=== PATIENT | female | born 1950 | race Caucasian/White ===

== ENCOUNTER 2021-02-14 06:56 | Emergency (ER) | payer MEDICARE ==
[~2021-02-14 06:56] MED LIST: ASPIRIN EC81 MG PO; COZAAR 25MG TAB25 MG PO; CRESTOR40 MG PO; GLIPIZIDE ER2.5 MG PO; ISOSORBIDE DINI30 MG PO; K-DUR20 MEQ PO; LASIX40 MG PO; METFORMIN HCL500 MG PO; METOPROLOL SUCC50 MG PO; NORVASC5 MG PO; PLAVIX75 MG PO; PROTONIX 40MG T40 MG PO; PROZAC10 MG PO
[2021-02-14 07:54] LABS: BASOPHIL 0.3 % (0-2); EOSINOPHIL 5.2 % (0-7); HCT 34.5 % (37.0-47.0); HGB 10.6 g/dl (12.5-16.0); LYMPHOCYTE 29.4 % (15-48); MCH 25.8 pg (25.0-31.0); MCHC 30.7 g/dL (32.0-36.0); MCV 83.9 fL (78.0-100.0); MONOCYTE 6.8 % (0-12); MPV 9.5 fL (6.0-9.5); NRBC 0; PLT 144 K/uL (150-400); RBC 4.11 M/uL (4.20-5.40); RDW 15.1 % (11.5-14.0)
[2021-02-14 08:01] LABS: PROTHROMBIN TIME 12.5 SECONDS (11.4-13.6); PTT 32.6 SECONDS (22.2-34.7)
[2021-02-14 08:08] LABS: ALBUMIN 3.7 g/dL (3.4-5.0); BILIRUBIN - TOTAL 0.8 mg/dL (0.2-1.0); BUN/CREAT RATIO (CALC) 17.7 RATIO; CREATININE 2.09 mg/dL (0.51-0.95); GLOBULIN (CALCULATION) 2.9 g/dL; POTASSIUM 3.6 mmol/L (3.5-5.1); TOTAL PROTEIN 6.6 g/dL (6.4-8.2)
[2021-02-14 08:19] LABS: CKMB 4.9 ng/mL (0.0-3.6)
== END 2021-02-14 09:45 | disposition other institution (70) ==
LOC: FER 06:56
PROVIDERS: Emergency Medicine
DX: I20.0 Unstable angina (principal); I10 Essential (primary) hypertension; R91.8 Other nonspecific abnormal finding of lung field; J98.11 Atelectasis; E11.9 Type 2 diabetes mellitus without complications; Z95.5 Presence of coronary angioplasty implant and graft; Z88.1 Allergy status to other antibiotic agents; Z20.822 Contact with and (suspected) exposure to COVID-19
CPT/HCPCS: 36415; 71045; 80053; 82553; 84484; 85025; 85610; 85730; 93005; U0002

== ENCOUNTER 2021-11-16 02:32 | Emergency (ER) | payer MEDICARE ==
[2021-11-16 03:04] LABS: BASOPHIL 0.2 % (0-2); EOSINOPHIL 2.3 % (0-7); HCT 36.8 % (37.0-47.0); HGB 10.9 g/dl (12.5-16.0); LYMPHOCYTE 29.5 % (15-48); MCH 24.9 pg (25.0-31.0); MCHC 29.6 g/dL (32.0-36.0); MCV 84.2 fL (78.0-100.0); MONOCYTE 8.9 % (0-12); MPV 8.9 fL (6.0-9.5); NEUTROPHIL 58.1 % (41-80); NRBC 0; PLT 169 K/uL (150-400); RBC 4.37 M/uL (4.20-5.40); WBC 5.2 K/uL (4.0-10.5)
[2021-11-16 03:07] LABS: ALBUMIN 3.2 g/dL (3.4-5.0); BILIRUBIN - TOTAL 0.4 mg/dL (0.2-1.0); BUN/CREAT RATIO (CALC) 20.6 RATIO; CREATININE 1.02 mg/dL (0.51-0.95); POTASSIUM 4.6 mmol/L (3.5-5.1); TOTAL PROTEIN 6.2 g/dL (6.4-8.2)
[2021-11-16 03:13] LABS: INR 0.96 (0.9-1.2); PROTHROMBIN TIME 12.2 SECONDS (11.8-13.4); PTT 26.3 SECONDS (24.4-34.7)
[2021-11-16 03:29] LABS: INFLUENZA A NAA NEGATIVE (NEGATIVE)
[2021-11-16 03:36] LABS: CORONAVIRUS 2019 SARS-COV-2 POSITIVE (NEGATIVE)
[2021-11-16] MEDS ORDERED: TESSALON PERLE100 MG PO (06:22)
[2021-11-16] MEDS ORDERED: PEPCID AC20 MG PO (06:22)
[2021-11-16] MEDS ORDERED: PULMICORT FLE180 MCG INH (06:22)
== END 2021-11-16 06:45 | disposition home or self-care (01) ==
LOC: FER 02:32
PROVIDERS: Emergency Medicine Emergency Medical Services
DX: U07.1 COVID-19 (principal); E11.9 Type 2 diabetes mellitus without complications; I10 Essential (primary) hypertension; Z88.1 Allergy status to other antibiotic agents
CPT/HCPCS: 36415; 71045; 80053; 83690; 84484; 85025; 85610; 85730; 93005; J1885; U0002